=== PATIENT | female | born 1945 | race Caucasian/White ===

== ENCOUNTER 2017-03-12 20:36 | Observation (INO) | payer MEDICARE, OTHER ==
[~2017-03-12] VITALS: Ht 157.5 cm; Wt 93.0 kg
[2017-03-12] MEDS ORDERED: SODIUM CHLORIDE 0.9% 1,000 ML IV ONE (22:47)
[2017-03-12] MEDS ORDERED: ONDANSETRON HCL 4MG/2ML VIAL IV STA (22:47)
[2017-03-12 23:27] LABS: BASOPHILS % 0.4 % (0.0-2.0); HEMATOCRIT. 44.6 % (36.0-48.0); HEMOGLOBIN. 14.8 g/dL (12.0-16.0); LYMPHOCYTES % 7.5 % (20.0-50.0); MEAN CORPUSCULAR HEMOGLOBIN 27.5 pg (28.0-32.0); MEAN CORPUSCULAR VOLUME 83.2 fL (81.0-99.0); MEAN PLATELET VOLUME 9.5 fl (7.4-10.4); MONOCYTES % 6.3 % (2.0-8.0); NEUTROPHILS % 85.8 % (40.0-76.0); PLATELET 220 x1000/uL (130-400); RED BLOOD CELL COUNT 5.36 mill/uL (4.2-5.4); RED CELL DISTRIBUTION WIDTH 14.8 % (11.6-14.6)
[2017-03-12 23:40] LABS: PARTIAL THROMBOPLASTIN TIME 24.7 sec (24.0-34.0); PROTHROMBIN TIME 10.8 sec
[2017-03-12 23:56] LABS: CARBON DIOXIDE 28 mEq/L (21-32); CHLORIDE 107 mEq/L (98-107); CREATINE KINASE 794 IU/L (26-192); TROPONIN I < 0.02 ng/mL (0.00-0.04)
[2017-03-13 08:00] VITALS: BP 160/83
[2017-03-13 12:35] LABS: BASOPHILS % 0.6 % (0.0-2.0); EOSINOPHILS % 1.1 % (0.0-5.0); HEMATOCRIT. 41.2 % (36.0-48.0); HEMOGLOBIN. 13.8 g/dL (12.0-16.0); LYMPHOCYTES % 19.8 % (20.0-50.0); MEAN CORPUSCULAR HEMOGLOBIN 27.8 pg (28.0-32.0); MEAN CORPUSCULAR VOLUME 83.1 fL (81.0-99.0); MONOCYTES % 9.4 % (2.0-8.0); NEUTROPHILS % 69.1 % (40.0-76.0); PLATELET 210 x1000/uL (130-400); RED BLOOD CELL COUNT 4.95 mill/uL (4.2-5.4); RED CELL DISTRIBUTION WIDTH 14.6 % (11.6-14.6)
[2017-03-13 12:43] LABS: CHLORIDE 109 mEq/L (98-107)
[2017-03-13 12:49] LABS: CARBON DIOXIDE 27 mEq/L (21-32)
[2017-03-13] MEDS: DEXT 5%/0.45% NACL 1000ML 1,000 ML IV SCH ×2 (13:11→23:31)
[2017-03-13] MEDS: LEVOFLOXACIN 500MG PREMIX 100 ML IV SCH (13:13)
[2017-03-13] MEDS: ENOXAPARIN 40MG/0.4ML SYR SUBCUT SCH (13:13)
[2017-03-13] MEDS ORDERED: PREVALITE PACKET (14:07)
[2017-03-13] MEDS ORDERED: PANT40TA4 PO (14:07)
[2017-03-13] MEDS ORDERED: SUMA100T16 PO (14:07)
[2017-03-13] MEDS ORDERED: BACL-141 PO (14:07)
[2017-03-13] MEDS ORDERED: ESOM40CA PO (14:07)
[2017-03-13] MEDS ORDERED: LOSA25TA12 PO (14:07)
[2017-03-13] MEDS ORDERED: TOPI-60 PO (14:07)
[2017-03-13 14:21] VITALS: BP 160/83
[2017-03-13] MEDS ORDERED: POTASSIUM CHLORIDE 20MEQ TABLET SR PO NR (15:00)
[2017-03-13 15:42] LABS: CREATINE KINASE 623 IU/L (26-192)
[2017-03-13 16:00] VITALS: BP 168/100
[2017-03-13] MEDS: HYDROCODONE/ACETAMINOPHEN 5/325MG TABLET PO PRN ×2 (16:56→23:34)
[2017-03-13] MEDS: BACLOFEN 10MG TABLET PO SCH (18:55)
[2017-03-13 20:00] VITALS: BP_SYST 167; BP_SYST 179; BP_SYST 184; BP_DIAS 105; BP_DIAS 106; BP_DIAS 117
[2017-03-13] MEDS: CLONIDINE 0.1MG TABLET PO PRN (21:22)
[2017-03-14] VITALS (9 sets, daily range): BP systolic 132–170; BP diastolic 77–105
[2017-03-14 04:13] LABS: CLARITY URINE CLEAR (CLEAR); COLOR URINE YELLOW (YELLOW); GLUCOSE URINE NEGATIVE (NEGATIVE); KETONES URINE NEGATIVE (NEGATIVE); LEUKOCYTE ESTERASE URINE NEGATIVE (NEGATIVE); NITRITE URINE NEGATIVE (NEGATIVE); OCCULT BLOOD URINE NEGATIVE (NEGATIVE); PH URINE 6.5 (4.5-8.0); PROTEIN URINE NEGATIVE (NEGATIVE); SPECIFIC GRAVITY URINE 1.018 (1.005-1.030); UROBILINOGEN URINE 0.2 E.U./dL (0.2-1.0)
[2017-03-14] MEDS: CLONIDINE 0.1MG TABLET PO PRN (04:50)
[2017-03-14 06:43] LABS: CARBON DIOXIDE 28 mEq/L (21-32); CHLORIDE 106 mEq/L (98-107)
[2017-03-14 06:59] LABS: BASOPHILS % 0.7 % (0.0-2.0); EOSINOPHILS % 3.9 % (0.0-5.0); HEMATOCRIT. 40.5 % (36.0-48.0); HEMOGLOBIN. 13.6 g/dL (12.0-16.0); MEAN CORPUSCULAR HEMOGLOBIN 28.1 pg (28.0-32.0); MEAN CORPUSCULAR VOLUME 83.8 fL (81.0-99.0); MEAN PLATELET VOLUME 9.3 fl (7.4-10.4); MONOCYTES % 11.6 % (2.0-8.0); NEUTROPHILS % 59.8 % (40.0-76.0); PLATELET 183 x1000/uL (130-400); RED BLOOD CELL COUNT 4.84 mill/uL (4.2-5.4); RED CELL DISTRIBUTION WIDTH 14.6 % (11.6-14.6)
[2017-03-14] MEDS: PANTOPRAZOLE 40MG DR TABLET PO SCH (08:54)
[2017-03-14] MEDS: LOSARTAN POTASSIUM 25 MG TABLET PO SCH (08:55)
[2017-03-14] MEDS: TOPIRAMATE 25MG TABLET PO SCH (08:55)
[2017-03-14] MEDS: ENOXAPARIN 40MG/0.4ML SYR SUBCUT SCH (08:56)
[2017-03-14] MEDS: BACLOFEN 10MG TABLET PO SCH (09:00)
[2017-03-14] MEDS: HYDROCODONE/ACETAMINOPHEN 5/325MG TABLET PO PRN ×4 (09:01→23:41)
[2017-03-14] MEDS ORDERED: POTASSIUM CHLORIDE 20MEQ TABLET SR PO NR (13:00)
[2017-03-14] MEDS: LEVOFLOXACIN 500MG PREMIX 100 ML IV SCH (14:23)
[2017-03-14] MEDS: DEXT 5%/0.45% NACL 1000ML 1,000 ML IV SCH ×2 (14:24→23:41)
[2017-03-14] MEDS: ONDANSETRON HCL 4MG/2ML VIAL IV PRN ×2 (15:00→20:09)
[2017-03-15 00:19] VITALS: BP 147/97
[2017-03-15 04:00] VITALS: BP 162/84
[2017-03-15 07:58] VITALS: BP_SYST 165; BP_SYST 174; BP_DIAS 103; BP_DIAS 98
[2017-03-15] MEDS ORDERED: LORAZEPAM 1MG TABLET PO NR (08:30)
[2017-03-15] MEDS: ENOXAPARIN 40MG/0.4ML SYR SUBCUT SCH (08:57)
[2017-03-15] MEDS: PANTOPRAZOLE 40MG DR TABLET PO SCH (08:57)
[2017-03-15] MEDS: LOSARTAN POTASSIUM 25 MG TABLET PO SCH (08:58)
[2017-03-15] MEDS: CLONIDINE 0.1MG TABLET PO PRN (08:58)
[2017-03-15] MEDS: TOPIRAMATE 25MG TABLET PO SCH (08:58)
[2017-03-15] MEDS ORDERED: LEVOFLOXACIN 500MG TABLET PO SCH (11:00)
[2017-03-15 12:00] VITALS: BP 147/97
[2017-03-15] MEDS: HYDROCODONE/ACETAMINOPHEN 5/325MG TABLET PO PRN (12:38)
[2017-03-15] MEDS ORDERED: MECLIZINE 25MG TABLET PO PRN (13:30)
[2017-03-15 15:57] VITALS: BP 134/86
[2017-03-15 17:49] VITALS: BP 134/86
== END 2017-03-15 20:10 | disposition home or self-care (01) ==
LOC: ER 20:54 → 6WST 03-13 00:39 → INTOOBSV 03-13 00:39 → EDBEDREQ 03-13 00:42 → ENRESERV 03-13 05:42 → 6WST 03-13 08:40
PROVIDERS: ADMIT Internal Medicine; ATTEND Internal Medicine
DX: S00.12XA Contusion of left eyelid and periocular area, initial encounter (principal); G43.909 Migraine, unspecified, not intractable, without status migrainosus; F07.81 Postconcussional syndrome; G89.29 Other chronic pain; M54.5 Low back pain; R11.2 Nausea with vomiting, unspecified; I10 Essential (primary) hypertension; W19.XXXA Unspecified fall, initial encounter; Y93.89 Activity, other specified; Y92.89 Other specified places as the place of occurrence of the external cause; Y99.8 Other external cause status
CPT/HCPCS: 36415; 70450; 70486; 70551; 71010; 80048; 80053; 81003; 82550; 82962; 83605; 83690; 84484; 85025; 85610; 85730; 87040; 93306; 93880; 95819; 96361; 96365; 96366; 96372; 96375; 96376; 97162; 97165; 97530; 99285; A6261; G0378; J1650; J1956; J2405; J3490; J7030; 96374